=== PATIENT | male | born 1965 | race Caucasian/White ===

== ENCOUNTER → 2016-07-23 | Outpatient (CLI) | payer MEDICAID ==
[~2016-07-23] MED LIST: ADULT WAL-TUSS118 ML PO; AMBIEN DPS10 MG PO; ASA CHILDREN'S81 MG PO; BACTRIM DS DPS1 TAB PO; BETADINE DPS1 GM TP; BIOFREEZE89 ML TP; BIOTENE MOIST44.3 ML PO; BYDUREON P2 MG/0.65 SQ; CLARITIN DPS10 MG PO; COLACE-DPS100 MG PO; COUGH & COLD T1 EACH PO; CYMBALTA30 MG PO; CYMBALTA60 MG PO; DELTASONE DPS10 MG PO; DEMADEX20 MG PO; DESYREL-DPS50 MG PO; DUONEB DPS3 ML IH; FLEXERIL DPS5 MG PO; FLOMAX DPS0.4 MG PO; FLONASE 0.05% D16 GM NS; GLUCAGON EMERGEN1 MG IM; GLUCOPHAGE-DPS500 MG PO; GLUCOPHAGE1000 MG PO; GUAIFENESIN400 MG PO; HABITROL DPS21 MG TP; HALDOL-DPS1 MG PO; HUMALOG KW200 UNIT/1 SQ; HYDROXYZINE HCL25 MG PO; KEFLEX-DPS250 MG PO; KEFLEX500 MG PO; KLOR-CON M2020 ME1 PO; LANTUS SOL100 UNIT/1 SQ; LASIX DPS80 MG PO; LEVAQUIN DPS750 MG PO; LEVEMIR100 UNIT/1 SQ; LOPRESSOR DPS50 MG PO; LORTAB 7.5-3251 EACH PO; MAALOX DPS30 ML PO; MAG-OX400 MG PO; MICRO-K DPS10 MEQ PO; MIRALAX PACKET17 GM PO; MUCINEX600 MG PO; NASONEX NASAL S17 GM NS; NEURONTIN300 MG PO; PEPCID20 MG PO; PERCOCET 10 DPS1 TAB PO; SEROQUEL25 MG PO; SLOW-MAG64 MG PO; TYLENOL325 MG PO; VIBRAMYCIN-DPS100 M2 PO; VITAMIN D35000 UNI1 PO; WELLBUTRIN SR100 MG PO; WELLBUTRIN SR150 MG PO; ZANAFLEX4 M2 PO; ZESTORETIC 10/11 TAB PO; ZESTRIL DPS2.5 MG PO; ZYLOPRIM-DPS300 MG PO
== END | disposition home or self-care (01) ==
LOC: PTH.S 10:25
DX: N18.9 Chronic kidney disease, unspecified (principal)